=== PATIENT | male | born 1965 | race Caucasian/White ===

== ENCOUNTER → 2017-11-30 | Outpatient (CLI) | payer OTHER ==
--- NOTE | 2017-11-30 12:32 | PCVCIMAG ---
APPROVED REPORT Study performed: 11/30/2017 11:35:00 Exam: Stress Echocardiogram Indication: CAD , Hyperlipidemia, Hypertension Stress Nurse: Antonia Us RN Status: routine Ht: 5 ft 9 in HR: 85 bpm BP: 148/92 mmHg Rhythm: NSR Medical History Medical History: Atrial Fibrillation, Smoking Procedure The patient underwent an Exercise Stress Test using the Sam Protocol. Blood pressure, heart rate, and EKG were monitored. An Echocardiogram was performed by arch support technician in four stages in quad fashion. At peak stress, four selected images were obtained and placed side by side with resting images for comparison. Stress Test Details Stress Test: Exercise stress testing was performed using a Sam protocol. HR Resting HR: 85 bpmMax Heart Rate (APMHR): 169 bpm Max HR Achieved: 130 bpmTarget HR (85% APMHR): 143 bpm % of APMHR: 76 Recovery HR: 96 bpm HR response to stress: Normal HR response to stress BP Resting BP: 148/92 mmHg Max BP: 178/100 mmHg Recovery BP: 152/88 mmHg ECG Resting ECG: Sinus Rhythm Stress ECG: Sinus Rhythm Recovery ECG: Sinus Rhythm Clinical Reason for Termination: Sciatic leg pain Exercise duration: 9 min 01 sec Highest Stage Achieved: Stage 3: 3.4 mph at 14% grade. Exercise capacity: 10.40 METs Overall Exercise Capacity for Age: Average Stress ECG Conclusion ECG: Non-ischemic Clinical: Non-ischemic Normal submaximal stress test. Pre-Stress Echo The resting Echocardiogram showed normal left ventricular contractility with an estimated Ejection Fraction of about >55%. Normal wall motion in all segments on baseline images. Post-Stress Echo The stress Echocardiogram showed normal left ventricular contractility with an estimated Ejection Fraction of about 55-60%. Normal augmentation of wall motion in all segments on post stress images. Clinical No clinical or ECG evidence for ischemia. Conclusion Clinical Response: Non-ischemic Exercise Capacity: Average Stress ECG Response: Non-ischemic Stress Echo Images: Non-ischemic The left ventricle is normal in size and wall thickness in both the rest and stress images. Submaximal test due to sciatic leg pain. Other Information Study Quality: Good <Conclusion> The left ventricle is normal in size and wall thickness in both the rest and stress images. Submaximal test due to sciatic leg pain.
== END | disposition home or self-care (01) ==
LOC: PCVCIMAG 13:00
PROVIDERS: ATTEND Internal Medicine Cardiovascular Disease
DX: I10 Essential (primary) hypertension (principal); I25.10 Atherosclerotic heart disease of native coronary artery without angina pectoris; J44.9 Chronic obstructive pulmonary disease, unspecified; I48.91 Unspecified atrial fibrillation; F17.200 Nicotine dependence, unspecified, uncomplicated
CPT/HCPCS: 93325; 93351